=== PATIENT | male | born 2000 | race Caucasian/White ===

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

== ENCOUNTER 2018-06-02 13:52 | Emergency (ER) | payer BC ==
[~2018-06-02] VITALS: Ht 180.3 cm; Wt 69.5 kg
[~2018-06-02 13:52] MED LIST: IBUP-1114 PO; MIRT15TA3 PO; PERC5TAB12 PO; PREV15CA18 PO; RITA10TA PO; ZANT150T15 PO
[2018-06-02] MEDS ORDERED: PROT1TAB2 PO (14:12)
[2018-06-02] MEDS ORDERED: DICYCLOMINE INJ 20MG/2ML (J0500) IM ONE (14:45)
[2018-06-02] MEDS ORDERED: ONDANSETRON 4MG/2ML VIAL (J2405) IV ONE (14:45)
[2018-06-02] MEDS ORDERED: NS 1,000 ML IV ONE (14:45)
[2018-06-02 16:05] LABS: HEMOGLOBIN 16.9 g/dl (13.5-17.5); MEAN CORPUSCULAR HEMOGLOBIN 29.6 pg (27.0-33.0); MEAN CORPUSCULAR HGB CONC 33.8 g/dl (32.0-36.5); MEAN CORPUSCULAR VOLUME 87.7 fl (80.0-96.0); PLATELET COUNT, AUTOMATED 223 10^3/uL (150-450); WHITE BLOOD COUNT 11.9 10^3/uL (4.0-10.0)
[2018-06-02 16:19] LABS: ALBUMIN 4.2 GM/DL (3.2-5.2); ALT/SGPT 35 U/L (12-78); BILIRUBIN,DIRECT 0.2 MG/DL (0.0-0.2); BILIRUBIN,TOTAL 1.3 MG/DL (0.2-1.0); BLOOD UREA NITROGEN 24 MG/DL (7-18); CALCIUM LEVEL 8.5 MG/DL (8.5-10.1); CARBON DIOXIDE LEVEL 24 MEQ/L (21-32); CHLORIDE LEVEL 108 MEQ/L (98-107); CREATININE FOR GFR 1.04 MG/DL (0.70-1.30); GLUCOSE, FASTING 99 MG/DL (70-100); LIPASE 78 U/L (73-393); SODIUM LEVEL 139 MEQ/L (136-145); TOTAL PROTEIN 7.5 GM/DL (6.4-8.2)
[2018-06-02 16:46] LABS: LYMPHOCYTES 3 % (16-52); MONOCYTES 4 % (0-8); NEUTROPHILS 76 % (35-75)
[2018-06-02 16:47] LABS: PLATELET ESTIMATE NORMAL (NORMAL)
[2018-06-02] MEDS ORDERED: DICY1CAP8 PO (17:34)
[2018-06-02] MEDS ORDERED: ONDA4TAB6 PO (17:34)
[2018-06-02 17:45] VITALS: BP 99/55
== END 2018-06-02 17:47 | disposition home or self-care (01) ==
LOC: M ED 13:52
DX: K52.9 Noninfective gastroenteritis and colitis, unspecified (principal); J45.909 Unspecified asthma, uncomplicated; K21.9 Gastro-esophageal reflux disease without esophagitis
CPT/HCPCS: 80048; 80076; 81001; 83690; 85025; 96372; 96374; 99284; J0500; J2405

== ENCOUNTER → 2020-03-24 | Outpatient (CLI) | payer BC ==
[~2020-03-24] MED LIST changes: +DICY1CAP8 PO; +ONDA4TAB6 PO; +PROT1TAB2 PO; +VENTAER INH
== END ==
LOC: M LABSMTC 10:03
PROVIDERS: ATTEND Anesthesiology
DX: Z01.812 Encounter for preprocedural laboratory examination (principal); Z20.828 Contact with and (suspected) exposure to other viral communicable diseases

== ENCOUNTER 2020-03-29 09:20 | Day surgery (SDC) | payer BC ==
[~2020-03-29] VITALS: Ht 177.8 cm; Wt 80.7 kg
[~2020-03-29 09:20] MED LIST changes: +AMPICILLIN SOD/SULBACTAM SOD 3 GM in D5W MINI-BAG PLUS 100 ML IV ONE; +LR 1,000 ML IV ONE; +dexameTHASONE 4 MG/ML 1ML VIAL (J1100 PER 1MG) IV ONE
[2020-03-29] MEDS ORDERED: dexameTHASONE 4 MG/ML 1ML VIAL (J1100 PER 1MG) As Ordered ONE (10:28)
[2020-03-29] MEDS ORDERED: fentaNYL 100 MCG/2 ML INJECTION (J3010) As Ordered ONE ×2 (10:28→10:54)
[2020-03-29] MEDS ORDERED: propofoL 200 MG/20 ML VIAL As Ordered ONE (10:28)
[2020-03-29] MEDS ORDERED: MIDAZOLAM INJ 2MG/2ML VIAL (J2250 PER 1MG) As Ordered ONE (10:28)
[2020-03-29] MEDS ORDERED: ROCURONIUM BROMIDE 50 MG/5 ML VIAL As Ordered ONE (10:28)
[2020-03-29] MEDS ORDERED: ONDANSETRON 4MG/2ML VIAL As Ordered ONE (10:28)
[2020-03-29] MEDS ORDERED: LIDOCAINE 2% 100MG/5ML SDV (FOR ANES.) As Ordered ONE (10:28)
[2020-03-29] MEDS ORDERED: CLINDAMYCIN 900 MG/50 ML PREMIX BAG As Ordered ONE (10:40)
[2020-03-29] MEDS ORDERED: ACETAMINOPHEN 1000MG 100ML IV BTL (OFIRMEV) (J0131 PER 10MG) As Ordered ONE (11:02)
[2020-03-29] MEDS ORDERED: SUGAMMADEX SODIUM 500 MG/5 ML VIAL (BRIDION) As Ordered ONE (11:04)
[2020-03-29] MEDS ORDERED: ESMOLOL INJ 100MG/10ML VIAL As Ordered ONE (11:05)
[2020-03-29] MEDS ORDERED: CLINDAMYCIN 900 MG in IV 1 EA IV ONE (11:15)
[2020-03-29] MEDS ORDERED: LIDOCAINE 2% W/ EPINEPHRINE 1.7 ML DENTAL INJ As Ordered ONE (11:44)
[2020-03-29] MEDS ORDERED: PHENYLephrine HCL 500 MCG/5 ML (100MCG/ML) SYRINGE (J2370) As Ordered ONE (12:03)
[2020-03-29] MEDS ORDERED: KETOROLAC 60MG 2ML VIAL As Ordered ONE (12:20)
[2020-03-29] MEDS ORDERED: LR 1,000 ML IV SCH (13:15)
[2020-03-29] MEDS ORDERED: ONDANSETRON 4MG/2ML VIAL IV PRN (13:15)
[2020-03-29] MEDS ORDERED: fentaNYL 100 MCG/2 ML INJECTION (J3010) IV PRN (13:15)
[2020-03-29] MEDS ORDERED: METOCLOPRAMIDE INJ 10MG/2ML VIAL (J2765 PER 1) IV PRN (13:15)
[2020-03-29] MEDS ORDERED: PERCOCET 5MG/325MG TAB PO PRN (13:15)
--- NOTE | 2020-03-29 13:21 | RO ---
OPERATIVE NOTE DATE OF OPERATION: 03/29/2020 SURGEON: Yobani Enciso DMD PREOPERATIVE DIAGNOSES: 1. 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 2. Deeply impacted and symptomatic wisdom teeth #1, 16, 17, and 32. POSTOPERATIVE DIAGNOSES: Status post the above. PROCEDURE(S) PERFORMED: Surgical extraction of teeth #1, 16, 17, and 32. ANESTHESIA USED: General endotracheal anesthesia via nasal ANSELMO. SPECIMENS: Teeth for gross only. INDICATIONS FOR PROCEDURE: Zaid is a pleasant 19-year-old male who was referred to my office for evaluation for extraction of his wisdom teeth. Clinical examination revealed mesioangular inclined and deeply impacted wisdom teeth #1, 16, 17, and 32 all encroaching onto the distal of the second molars. His past medical history is contributor for a history of syncope and seizure-like activity in the setting of any stressful situations. He has done this numerous times. He also has a history of preventricular contractions (PVCs). In lieu of all of these issues, I offered the patient to have the procedure done in an operating setting under general anesthesia with the care of an anesthesiologist in an operating room setting. He did have a preoperative cardiology evaluation and he was cleared for the procedure. A complete history and physical was performed and in the patient's chart. An informed consent was obtained and was explained to the patient and his mother at the chair side and is in the patient's chart. DESCRIPTION OF PROCEDURE: On 03/29, the patient presented to the preoperative holding area. A COVID test was performed and was negative five days ago. Any last minute questions were addressed. At that point, the patient had the informed consent updated and signed. He was then taken back to the operating room under the care of the anesthesiologist and myself. He was laid supine on the operating room table. Ulnar nerve protectors were placed and noninvasive cardiac monitors were applied. At that point, the patient underwent general anesthesia and was intubated with a nasal ANSELMO, which was secured to the patient's forehead. He was then prepped and draped in the usual sterile fashion. A time-out procedure was performed to identify the patient, the procedure, and any other precautions. A moist throat pack was inserted into the patient's oropharynx followed by the administration of eight carpules of 2% Lidocaine with 1:100,000 epinephrine as local infiltrations and blocks. Incisors #17 and 32 were then given attention where a full-thickness flap was released into the impacted teeth areas with a hockey stick buccal extension going into the distal of the lower second molars, into their sulcus, and into the papilla between teeth #18-19 and 30-31 respectively. The flap was fully reflected subperiosteally. A Surgitome was then used to removal buccal bone, as well as distal bone all the way down to the furcation of the teeth. The crowns were then suctioned buccolingually just shy of the lingo-cortex and teeth were then divided and removed in multiple segments. Once the entirety of the teeth were removed, the sockets were curetted, irrigated, and inspected. Inferior alveolar nerves were not noted. Lingual cortices were intact. The sites were once again irrigated and curetted. Small Gelfoam was placed in each area and the flaps were then closed with 3-0 Chromic sutures in a primary fashion. Attention was then given to teeth #1 and 16 where a full-thickness flap was released over the impacted wisdom tooth area into the tuberosity area and extended distally into the sulcus of teeth #2 and 15 with a proximal vertical release. Flaps were reflected and buccal bone was removed, as well as distal bone was removed, and then the teeth were luxated and delivered without any issues. No sinus exposure was noted. A small piece of Gelfoam was inserted into each socket. The flaps were then closed with 3-0 Chromic sutures. At this point, the oral cavity was irrigated and suctioned. The throat pack was removed. The patient was then awakened from general anesthesia and taken back to the PACU under the care of the anesthesiologist and myself. COMPLICATIONS: None at the completion of the surgery. ESTIMATED BLOOD LOSS: 30 mL. DRAINS: None placed.
[2020-03-29 14:12] VITALS: BP 129/59
== END 2020-03-29 15:10 | disposition home or self-care (01) ==
LOC: M SDC 09:20
PROVIDERS: ATTEND Dentist
DX: K01.1 Impacted teeth (principal); F41.9 Anxiety disorder, unspecified
CPT/HCPCS: 88300; D7230; J0131; J1100; J1885; J2250; J2370; J2405; J3010

== ENCOUNTER → 2024-12-30 | Outpatient (REF) | payer BC, OTHER ==
[~2024-12-30] MED LIST changes: -AMPICILLIN SOD/SULBACTAM SOD 3 GM in D5W MINI-BAG PLUS 100 ML IV ONE; -LR 1,000 ML IV ONE; +ONDA-282 PO; -ONDA4TAB6 PO; -PREV15CA18 PO; +PREV15CA24 PO; -dexameTHASONE 4 MG/ML 1ML VIAL (J1100 PER 1MG) IV ONE
[2024-12-30 13:13] LABS: ALT/SGPT 30.0 U/L (7.0-40); AST/SGOT 19.0 U/L (<34); CALCIUM LEVEL 9.6 MG/DL (8.5-10.1); CARBON DIOXIDE LEVEL 28.0 MMOL/L (20-31); CHLORIDE LEVEL 104.0 MMOL/L (98-107); CHOLESTEROL LEVEL 166.0 MG/DL (<200); CHOLESTEROL RISK RATIO 3.66 (<5); CREATININE FOR GFR 1.18 MG/DL (0.70-1.30); GLOMERULAR FILTRATION RATE 87.3 (>60); LDL CHOLESTEROL 91.5 MG/DL (<100); NON-HDL-C 120.7 MG/DL; POTASSIUM SERUM 4.1 MMOL/L (3.5-5.1); SODIUM LEVEL 144.0 MMOL/L (136-145); TRIGLYCERIDES LEVEL 146.0 MG/DL (<150)
[2025-01-01 18:17] LABS: FREE T4 1.29 NG/DL (0.89-1.76)
== END ==
LOC: M LAB REF 07:57
PROVIDERS: ATTEND Family Medicine
DX: Z13.89 Encounter for screening for other disorder (principal); R53.83 Other fatigue; Z13.220 Encounter for screening for lipoid disorders